=== PATIENT | male | born 1965 | race Caucasian/White ===

== ENCOUNTER → 2018-08-30 | Day surgery (SDC) | payer MEDICARE, MEDICAID ==
[~2018-08-30] MED LIST: Aspirin TAB* 325 MG PO ONE; Clopidogrel TAB* 300 MG PO ONE; Flumazenil* 0.1 MG/ML 5 ML MDV ONE; Heparin 2 UNITS/ML IVPREMIX* 1,000 ML IV ONE; Heparin 2 UNITS/ML IVPREMIX* 2,000 ML IV ONE; Heparin(*) 1000 UNIT/ML 10 ML VIAL CATH LAB IV ONE; Iohexol 350 (CONTRAST) 200 ML MDV IV ONE; Ketorolac INJ* 30 MG/ML 1 ML VIAL ONE; LORazepam TAB(*) 1 MG ONE; Lidocaine 1% INJ* 10 MG/ML 30 ML SDV ONE; Midazolam* 1 MG/ML 10 ML VIAL (10 MG) ONE; Naloxone* 0.4 MG/ML 1 ML VIAL ONE; fentaNYL* 50 MCG/ML 2 ML VIAL (100 MCG VIAL) ONE; oxyCODONE/Acetamin 5/325 MG* TAB ONE
[2018-08-30 11:52] LABS: ABS Basophils 0.1 10^3/ul (0-0.2); ABS Eosinophils 0.1 10^3/ul (0-0.6); ABS Lymphocytes 1.3 10^3/ul (1.0-4.8); ABS Neutrophils 7.5 10^3/ul (1.5-7.7); ABS Nucleated RBC 0 10^3/ul; Eosinophil % 0.8 %; Hematocrit 41 % (42-52); Hemoglobin 12.8 g/dl (14.0-18.0); Lymphocyte % 12.7 %; Mean Corpuscular HGB Conc 32 g/dl (31-36); Mean Corpuscular Hemoglobin 24 pg (27-31); Mean Corpuscular Volume 75 fL (80-94); Nucleated Red Blood Cells % 0.1; Platelet Count 218 10^3/ul (150-450); Red Blood Count 5.46 10^6/ul (4.00-5.40); Red Cell Distribution Width 22 % (10.5-15)
[2018-08-30 12:11] LABS: INR 0.94 (0.77-1.02)
[2018-08-30 17:05] VITALS: BP 158/102
== END | disposition home or self-care (01) ==
LOC: CHICATH 11:02
PROVIDERS: ATTEND Radiology Diagnostic Radiology
DX: I70.223 Atherosclerosis of native arteries of extremities with rest pain, bilateral legs (principal); I10 Essential (primary) hypertension; F17.210 Nicotine dependence, cigarettes, uncomplicated
CPT/HCPCS: 36415; 75736; 76937; 85025; 85347; 85610; 99156; 99157; A9270-GY; C1725; C1760; C1769; C1887; C1894; J1644; J1885; J2250; J2310; J3010